=== PATIENT | male | born 1990 | race Caucasian/White ===

== ENCOUNTER 2023-05-22 01:52 | Inpatient (IN) | payer MEDICAID ==
[~2023-05-22] VITALS: Ht 172.7 cm; Wt 67.1 kg
[2023-05-22 03:04] LABS: EOSINOPHILS % (AUTO) 3.2 % (1.0-6.0); HEMATOCRIT 37.1 % (41-53); HEMOGLOBIN 12.8 g/dL (13.5-17.5); LYMPHOCYTES # (AUTO) 1.7 K/uL (1.0-4.8); LYMPHOCYTES % (AUTO) 43.8 % (22.0-44.0); MEAN CORPUSCULAR HEMOGLOBIN 31.3 pg (26.0-34.0); MEAN CORPUSCULAR HGB CONC 34.6 G/dL (31.0-37.0); MEAN CORPUSCULAR VOLUME 91 fL (80-100); MONOCYTES # (AUTO) 0.4 K/uL (0.1-1.0); MONOCYTES % (AUTO) 11.4 % (2.0-9.0); NEUTROPHILS # (AUTO) 1.5 K/uL (1.8-7.7); NEUTROPHILS % (AUTO) 40.6 % (40.0-70.0); PLATELET COUNT (AUTO) 220 K/uL (150-450); RED BLOOD CELL COUNT(AUTO) 4.09 MIL/uL (4.50-5.90); RED CELL DISTRIBUTION WIDTH 13.8 % (11.5-14.5)
[2023-05-22 03:09] LABS: ANION GAP 6 mmol/L (8-16); CARBON DIOXIDE 28 mmol/L (22-29); CHLORIDE 104 mmol/L (98-107); CREATININE 1.03 mg/dL (0.60-1.30); GLOMERULAR FILTR. RATE CALC > 60 mL/min (>60); GLUCOSE,RANDOM 100 mg/dL (70-110); POTASSIUM 3.9 mmol/L (3.5-5.1); SODIUM SERUM 138 mmol/L (136-145)
[2023-05-22 03:14] LABS: ALANINE AMINOTRANSFERASE 38 U/L (12-78); ALBUMIN 3.7 g/dL (3.4-5.0); ALKALINE PHOSPHATASE 77 U/L (46-116); ASPARTATE AMINOTRANSFERASE 29 U/L (15-37); BILIRUBIN,TOTAL 0.5 mg/dL (0.1-1.0); TOTAL PROTEIN, SERUM 6.9 g/dL (6.4-8.2)
[2023-05-22] MEDS ORDERED: OLANZapine 5 MG TABLET PO ONE (03:45)
[2023-05-22] MEDS ORDERED: LORazepam 1 MG TABLET PO ONE (03:45)
[2023-05-22] MEDS ORDERED: DiphenhydrAMINE HCL 25 MG CAPSULE PO ONE (03:45)
[2023-05-22 04:18] LABS: COVID AG,FIA SOURCE NASAL SWAB
[2023-05-22] MEDS ORDERED: HALOPERIDOL 5 MG TABLET PO PRN (07:30)
[2023-05-22] MEDS ORDERED: ZOLPIDEM TARTRATE 10 MG TABLET PO PRN (07:30)
[2023-05-22 15:22] VITALS: BP 101/72; PULSE 96; RESP 18; TEMP 98.2; O2SAT 98
[2023-05-22 19:48] VITALS: BP 103/65; PULSE 100; RESP 17; TEMP 98.4; O2SAT 97
[2023-05-23 08:25] VITALS: BP 137/89; PULSE 108; RESP 20; TEMP 98.6; O2SAT 98
[2023-05-23] MEDS: NICOTINE 7 MG/24 HOUR PATCH TD SCH (08:26)
[2023-05-23] MEDS ORDERED: ONDANSETRON HCL 4 MG TABLET PO PRN (12:45)
[2023-05-23] MEDS ORDERED: GuaiFENesin/D-METHORPHAN [SUGAR-FREE] 200-20MG/10 ML SYRUP UDCUP PO PRN (12:45)
[2023-05-23] MEDS ORDERED: MAG HYDROX/AL HYDROX/SIMETH ES 30 ML SUSPENSION UDCUP PO PRN (12:45)
[2023-05-23] MEDS ORDERED: IBUPROFEN 400 MG TABLET PO PRN (12:45)
[2023-05-23] MEDS ORDERED: NICOTINE 14 MG/24 HOUR PATCH TD PRN (12:45)
[2023-05-23] MEDS ORDERED: ACETAMINOPHEN 325 MG TABLET PO PRN (12:45)
[2023-05-23] MEDS ORDERED: CloNIDine HCL 0.1 MG TABLET PO PRN (12:45)
[2023-05-23] MEDS ORDERED: LOPERAMIDE HCL 2 MG CAPSULE PO PRN (12:45)
[2023-05-23] MEDS ORDERED: PETROLATUM,WHITE 28 GM JELLY TP PRN (12:45)
[2023-05-23] MEDS ORDERED: MAGNESIUM HYDROXIDE SUSPENSION 30 ML UDCUP PO PRN (12:45)
[2023-05-23] MEDS ORDERED: DOCUSATE SODIUM 100 MG CAPSULE PO PRN (12:45)
[2023-05-23] MEDS: ALBUTEROL SULFATE HFA 90 MCG/PUFF 8 GM INHALER IH PRN (14:11)
[2023-05-23] MEDS: LORazepam 2 MG TABLET PO PRN (18:38)
[2023-05-23] MEDS: OLANZapine 10 MG TABLET PO SCH (20:07)
[2023-05-23 20:13] VITALS: BP 95/58; PULSE 92; RESP 16; TEMP 97.1; O2SAT 92
[2023-05-24 08:05] LABS: HEMOGLOBIN A1C 4.3 % (3.8-5.6)
[2023-05-24 08:10] VITALS: BP 98/59; PULSE 72; RESP 16; TEMP 97.3; O2SAT 99
[2023-05-24 08:19] LABS: CHOL/HDL RATIO 4.3 (4.2-7.3); THYROID STIMULATING HORMONE 1.88 uIU/mL (0.36-3.74)
[2023-05-24] MEDS: SERTRALINE HCL 50 MG TABLET PO SCH (08:33)
[2023-05-24] MEDS: NICOTINE 7 MG/24 HOUR PATCH TD SCH (08:34)
[2023-05-24] MEDS: LORazepam 2 MG TABLET PO PRN (15:28)
[2023-05-24 20:13] VITALS: BP 99/62; PULSE 75; RESP 18; TEMP 97.7; O2SAT 98
[2023-05-24] MEDS: OLANZapine 10 MG TABLET PO SCH (21:08)
[2023-05-25] MEDS: NICOTINE 7 MG/24 HOUR PATCH TD SCH (08:04)
[2023-05-25] MEDS: SERTRALINE HCL 50 MG TABLET PO SCH (08:04)
[2023-05-25 08:21] VITALS: BP 94/51; PULSE 63; RESP 17; TEMP 98.5; O2SAT 96
[2023-05-25] MEDS: LORazepam 2 MG TABLET PO PRN ×2 (14:37→18:39)
[2023-05-25] MEDS: ALBUTEROL SULFATE HFA 90 MCG/PUFF 8 GM INHALER IH PRN (18:13)
[2023-05-25 20:16] VITALS: BP 145/77; PULSE 94; RESP 20; TEMP 98.7; O2SAT 99
[2023-05-25] MEDS: OLANZapine 10 MG TABLET PO SCH (20:18)
[2023-05-26] MEDS: NICOTINE 7 MG/24 HOUR PATCH TD SCH (08:04)
[2023-05-26] MEDS: SERTRALINE HCL 50 MG TABLET PO SCH (08:04)
[2023-05-26 08:53] VITALS: BP 111/72; PULSE 100; RESP 16; TEMP 98.2; O2SAT 96
[2023-05-26] MEDS: LORazepam 2 MG TABLET PO PRN (14:34)
[2023-05-26] MEDS ORDERED: OLAN10TA74 PO (17:30)
[2023-05-26] MEDS ORDERED: SERT-158 PO (17:31)
== END 2023-05-26 18:30 | disposition left against medical advice (07) | DRG 750 ==
LOC: EMS 01:54 → B3A 14:14
PROVIDERS: ADMIT Psychiatry & Neurology Child & Adolescent Psychiatry; ATTEND Psychiatry & Neurology Child & Adolescent Psychiatry
DX: F25.1 Schizoaffective disorder, depressive type (principal); R45.851 Suicidal ideations; F15.10 Other stimulant abuse, uncomplicated; Z20.822 Contact with and (suspected) exposure to COVID-19; Z53.29 Procedure and treatment not carried out because of patient's decision for other reasons; F32.A Depression, unspecified; F41.9 Anxiety disorder, unspecified; D64.9 Anemia, unspecified; F19.10 Other psychoactive substance abuse, uncomplicated; D72.819 Decreased white blood cell count, unspecified; Z59.00 Homelessness unspecified; Z79.899 Other long term (current) drug therapy
CPT/HCPCS: 80053; 80061; 83036; 84443; 85025; G0480; J3535